=== PATIENT | male | born 2000 | race Caucasian/White ===

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

== ENCOUNTER 2023-09-15 06:55 | Day surgery (SDC) | payer MEDICAID, SELFPAY ==
[2023-09-15] MEDS ORDERED: Ketorolac Tromethamine 30 MG (1 mL) VIAL ONE ×2 (07:48→09:53)
[2023-09-15] MEDS ORDERED: Morphine 4 MG/ML VIAL ONE (07:48)
[2023-09-15] MEDS ORDERED: Ondansetron PF 4 MG/2 ML Vial ONE ×2 (07:55→09:25)
[2023-09-15 07:56] LABS: #Basophils 0.1 thou/uL (0.0-0.2); #Eosinphils 0.3 thou/uL (0.0-0.7); #Monocytes 0.6 thou/uL (0.11-0.59); #Neutrophils 7.4 thou/uL (1.40-6.50); %Basophils 0.6 % (0.0-1.0); %Eosinophils 2.3 % (0.0-10.0); %Lymphocytes 25.5 % (21.0-51.0); %Monocytes 5.3 % (0.0-10.0); %Neutrophils 65.9 % (42.0-75.0); Hematocrit 43.2 % (42.0-52.0); Hemoglobin 14.1 g/dL (14.0-18.0); Mean Corpuscular HGB CONC 32.6 g/dL (32.0-36.0); Mean Corpuscular Hemoglobin 29.9 pg (27.0-31.0); Mean Corpuscular Volume 91.7 fl (78.0-98.0); Mean Platelet Volume 9.9 fL (7.4-10.4); Platelet Count 240 10x3/uL (130-400); RBC Distribution Width 12.6 % (11.5-14.5); Red Blood Cell (RBC) Count 4.71 mill/uL (4.70-6.10); White Blood Cell (WBC) Count 11.3 10x3/uL (4.8-10.8)
[2023-09-15 08:24] LABS: ALT (SGPT) 26 U/L (8-55); AST (SGOT) 15 U/L (5-34); Albumin 4.4 g/dL (3.5-5.0); Alkaline Phosphatase 73 U/L (40-110); Anion Gap 12 mmol/L (10-20); BUN (Urea Nitrogen) 12 mg/dL (8.9-20.6); Bilirubin, Total 0.2 mg/dL (0.2-1.2); Calc. Creatinine Clearance 0 mL/min (70-130); Calcium 9.4 mg/dL (7.8-10.44); Carbon Dioxide 25 mmol/L (22-29); Chloride 107 mmol/L (98-107); Estimated GFR 88; Globulin 2.5 g/dL (2.4-3.5); Glucose 120 mg/dL (70-105); Potassium 4.1 mmol/L (3.5-5.1); Protein, Total 6.9 g/dL (6.0-8.3); Sodium 140 mmol/L (136-145)
[2023-09-15] MEDS ORDERED: PROPOFOL 40 ML ONE (08:52)
[2023-09-15] MEDS ORDERED: HYDROmorphone 2 MG/ML VIAL ONE (09:02)
[2023-09-15] MEDS ORDERED: CEFAZOLIN 1 GM VIAL ONE (09:11)
[2023-09-15] MEDS ORDERED: PROPOFOL 20 ML ONE (09:32)
[2023-09-15] MEDS ORDERED: Bupivacaine 0.25% HCL 30 ML VIAL ONE (09:35)
[2023-09-15] MEDS ORDERED: ePHEDrine Sulfate 50 MG/10 ML VIAL ONE (09:41)
[2023-09-15] MEDS ORDERED: Sodium Chloride 0.9% 100 ML ONE (09:45)
[2023-09-15] MEDS ORDERED: Dexmedetomidine 200 MCG/2 ML VIAL ONE (09:45)
[2023-09-15] MEDS ORDERED: Promethazine HCl 25 MG/ML VIAL IM PRN (09:56)
[2023-09-15] MEDS ORDERED: HYDROmorphone 2 MG/ML VIAL SLOW IVP PRN (09:56)
[2023-09-15] MEDS ORDERED: Ondansetron HCl/PF 4 MG/2 ML Vial IVP PRN (09:56)
== END 2023-09-15 12:10 | disposition home or self-care (01) ==
LOC: ERS 06:55 → SDC 09:02
PROVIDERS: ATTEND Urology
PROC: 0VSC0ZZ Reposition Bilateral Testes, Open Approach (ICD-10-PCS; principal; 2023-09-15)
DX: N44.00 Torsion of testis, unspecified (principal)
CPT/HCPCS: 36415; 76870; 80053; 85025; 93976; 94760; 96374; 96375; J0665; J0690; J1170; J1885; J2270; J2405; J2704